=== PATIENT | male | born 1990 | race Caucasian/White ===

== ENCOUNTER 2017-05-18 03:09 | Emergency (ER) | payer OTHER ==
[2017-05-18] MEDS ORDERED: SULFAMETH-TMP DS STARTER PACK 2 TAB BTL PO STA (03:28)
[2017-05-18] MEDS ORDERED: ACET/COD 300 MG/30 MG STARTER PACK 6 TAB BTL PO STA (03:28)
--- NOTE | 2017-05-18 04:06 | ED ---
Skin/Abscess/FB HPI - General Chief complaint: Skin/Abscess/Foreign Body Stated complaint: cyst Time Seen by Provider: 05/18/17 03:19 Source: patient, RN notes reviewed, old records reviewed Mode of arrival: ambulatory Limitations: no limitations - History of Present Illness Initial comments: This is a 26 year old male with pilionidal abscess for 1 week. Patient reports that he has had them before, and one was drained last year. He states that he has no fever or chills, denies any difficulty with bowel movements. Patient reports he has not had any antibiotics. Patient denies any history of MRSA. Patient reports that he has never seen a surgeon before. - Related Data Previous Rx's Medication Instructions Recorded Acetaminophen-Codeine 300-30mg 1 tab PO Q6H PRN #15 tablet 05/18/17 [Tylenol #3] Sulfamethox-Tmp 800-160Mg [Bactrim 2 tab PO Q12HR #40 tab 05/18/17 DS 800-160 mg] Allergies Allergy/AdvReac Type Severity Reaction Status Date / Time No Known Allergies Allergy Verified 05/18/17 03:13 Review of Systems ROS Statement: Those systems with pertinent positive or pertinent negative responses have been documented in the HPI. ROS Other: All systems not noted in ROS Statement are negative. Past Medical History Past Medical History: No Reported History History of Any Multi-Drug Resistant Organisms: None Reported Past Surgical History: No Surgical Hx Reported Past Psychological History: No Psychological Hx Reported Smoking Status: Current every day smoker Past Alcohol Use History: Occasional Past Drug Use History: None Reported General Exam - General Exam Comments Initial Comments: This is a 26 year old male, no distress. Limitations: no limitations General appearance: alert, in no apparent distress Head exam: Present: atraumatic, normocephalic, normal inspection Eye exam: Present: normal appearance, PERRL, EOMI. Absent: scleral icterus, conjunctival injection, periorbital swelling ENT exam: Present: normal exam, mucous membranes moist Neck exam: Present: normal inspection. Absent: tenderness, meningismus, lymphadenopathy Respiratory exam: Present: normal lung sounds bilaterally. Absent: respiratory distress, wheezes, rales, rhonchi, stridor Cardiovascular Exam: Present: regular rate, normal rhythm, normal heart sounds. Absent: systolic murmur, diastolic murmur, rubs, gallop, clicks GI/Abdominal exam: Present: soft, normal bowel sounds. Absent: distended, tenderness, guarding, rebound, rigid Rectal exam: Present: other (Evidece of 4cm pilionidal abscess. ) Extremities exam: Present: normal inspection, full ROM, normal capillary refill. Absent: tenderness, pedal edema, joint swelling, calf tenderness Back exam: Present: normal inspection Neurological exam: Present: alert, oriented X3, CN II-XII intact Psychiatric exam: Present: normal affect, normal mood Course Vital Signs 05/18/17 05/18/17 03:12 04:41 Temperature 98.3 F 99.2 F Pulse Rate 100 78 Respiratory 20 16 Rate Blood Pressure 153/95 134/83 O2 Sat by Pulse 98 96 Oximetry Procedures - Incision & Drainage Consent Obtained: verbal consent Site: buttock (pilionidal abscess) Size (cm): 4 Anesthetic Used: lidocaine 1% Amount (mLs): 10 I&D Cleaning Method: Iodine Sterile Field Used?: Yes Scalpel Used: #11 I&D Drainage Obtained: Pus, Blood Packing: Iodoform Culture Obtained?: Yes Patient Tolerated Procedure: well, no complications Medical Decision Making - Medical Decision Making This is a 26 year old male with pilionidal abscess for one week. Patient was incised and drained, adn packing placed. Culture obtained. Patient started on Bactrim DS BID and pain medication. Patient tolerated procedure well. Patient will be discharged with referral to surgeon. Discussed that packing needed to be removed in 2 days and follow up with a PCP or surgeon. Discussed sitz baths, and returning if there are any fevers or further complication. REturn parameters discussed. Disposition Clinical Impression: Pilonidal abscess Disposition: HOME SELF-CARE Condition: Good Instructions: Abscess (ED) Additional Instructions: Patient advised to follow-up with PCP. Packing needs to be removed in approximately 2 days. Patient to follow-up with surgeon for permanent surgery and expiration of the thigh abscess and tracks. Patient needs to complete all of your antibiotics, do not miss a dose. Return to the emergency department if any alarming signs or symptoms occur. Prescriptions: Acetaminophen-Codeine 300-30mg [Tylenol #3] 1 tab PO Q6H PRN #15 tablet PRN Reason: Pain Sulfamethox-Tmp 800-160Mg [Bactrim DS 800-160 mg] 2 tab PO Q12HR #40 tab Referrals: None,Stated [Primary Care Provider] - 1-2 days Laina Yu MD [STAFF PHYSICIAN] - 1-2 days Poli Pressley MD [Medical Doctor] - 1-2 days Time of Disposition: 04:04
[2017-05-18 04:42] VITALS: BP 134/83; PULSE 78; RESP 16; TEMP 99.2
== END 2017-05-18 04:41 | disposition home or self-care (01) ==
LOC: EC 03:09
DX: L05.01 Pilonidal cyst with abscess (principal); F17.200 Nicotine dependence, unspecified, uncomplicated
CPT/HCPCS: 10080; 87070; 87205; 99283